=== PATIENT | female | born 1975 | race Caucasian/White ===

== ENCOUNTER 2022-03-15 09:25 | Emergency (ER) | payer BC ==
[2022-03-15] MEDS ORDERED: predniSONE 20 MG Tab PO ONE (15:09)
[2022-03-15 15:55] LABS: ESTIMATED GFR 91 mL/min (>60)
== END 2022-03-15 18:05 | disposition home or self-care (01) ==
LOC: JD.ED 09:25
DX: M51.26 Other intervertebral disc displacement, lumbar region (principal); Z86.16 Personal history of COVID-19
CPT/HCPCS: 36415; 72131; 80053; 85007; 85027; 85652; 86140; 99284; J7512